=== PATIENT | female | born 1965 | race Caucasian/White ===

== ENCOUNTER 2019-10-06 09:58 | Outpatient (RCR) | payer OTHER | END 2020-01-04 | disposition home or self-care (01) | LOC: WSOH | DX: M70.831 Other soft tissue disorders related to use, overuse and pressure, right forearm (principal); J32.9 Chronic sinusitis, unspecified; T78.40XA Allergy, unspecified, initial encounter; M54.30 Sciatica, unspecified side; K30 Functional dyspepsia; Y99.0 Civilian activity done for income or pay; Z90.721 Acquired absence of ovaries, unilateral; Z90.49 Acquired absence of other specified parts of digestive tract ==